=== PATIENT | male | born 1990 | race African-American/Black ===

== ENCOUNTER 2021-06-14 14:22 | Inpatient (IN) | payer MEDICAID ==
[~2021-06-14] VITALS: Ht 175.3 cm; Wt 85.3 kg
[2021-06-14 14:55] LABS: BASOPHILS % (AUTO) 1.7 % (0.0-2.0); EOSINOPHILS % (AUTO) 7.2 % (1.0-6.0); HEMATOCRIT 45.2 % (41-53); HEMOGLOBIN 14.4 g/dL (13.5-17.5); LYMPHOCYTES # (AUTO) 1.3 K/uL (1.0-4.8); LYMPHOCYTES % (AUTO) 30.3 % (22.0-44.0); MEAN CORPUSCULAR HEMOGLOBIN 25.1 pg (26.0-34.0); MEAN CORPUSCULAR VOLUME 79 fL (80-100); MONOCYTES # (AUTO) 0.3 K/uL (0.1-1.0); MONOCYTES % (AUTO) 6.4 % (2.0-9.0); NEUTROPHILS # (AUTO) 2.4 K/uL (1.8-7.7); NEUTROPHILS % (AUTO) 54.4 % (40.0-70.0); PLATELET COUNT (AUTO) 346 K/uL (150-450); RED BLOOD CELL COUNT(AUTO) 5.74 MIL/uL (4.50-5.90)
[2021-06-14 15:17] LABS: ANION GAP 8 mmol/L (8-16); CALCIUM, TOTAL 9.1 mg/dL (8.8-10.5); CARBON DIOXIDE 30 mmol/L (22-29); CHLORIDE 108 mmol/L (98-107); GLOMERULAR FILTR. RATE CALC > 60 mL/min (>60); GLUCOSE,RANDOM 105 mg/dL (70-110); POTASSIUM 3.9 mmol/L (3.5-5.1); SODIUM SERUM 146 mmol/L (136-145); UREA NITROGEN, BLOOD 13 mg/dL (7-18)
[2021-06-14 15:25] LABS: AMPHET/METH SCREEN,URINE POSITIVE (NEGATIVE); BARBITURATE SCREEN, URINE NEGATIVE (NEGATIVE); BENZODIAZEPINES SCREEN,URINE NEGATIVE (NEGATIVE); CANNABINOID SCREEN,URINE POSITIVE (NEGATIVE); COCAINE SCREEN,URINE NEGATIVE (NEGATIVE); METHADONE SCREEN, URINE NEGATIVE (NEGATIVE); OPIATE SCREEN,URINE NEGATIVE (NEGATIVE)
[2021-06-14 15:26] LABS: PHENCYCLIDINE SCREEN,URINE NEGATIVE (NEGATIVE)
[2021-06-14 15:27] LABS: ALANINE AMINOTRANSFERASE 28 U/L (12-78); ALBUMIN 4.2 g/dL (3.4-5.0); ALKALINE PHOSPHATASE 81 U/L (46-116); ASPARTATE AMINOTRANSFERASE 18 U/L (15-37); BILIRUBIN,TOTAL 1.1 mg/dL (0.1-1.0); TOTAL PROTEIN, SERUM 7.8 g/dL (6.4-8.2)
[2021-06-14 16:43] LABS: COVID AG,FIA SOURCE NASOPHARYNGEAL
[2021-06-14] MEDS ORDERED: ZOLPIDEM TARTRATE 10 MG TABLET PO PRN (21:00)
[2021-06-15 01:51] VITALS: BP 137/90
[2021-06-15] MEDS ORDERED: ACETAMINOPHEN 325 MG TABLET PO PRN (06:30)
[2021-06-15] MEDS ORDERED: MAG HYDROX/AL HYDROX/SIMETH ES 30 ML SUSPENSION UDCUP PO PRN (06:30)
[2021-06-15] MEDS ORDERED: DOCUSATE SODIUM 100 MG CAPSULE PO PRN (06:30)
[2021-06-15] MEDS ORDERED: ALBUTEROL SULFATE HFA 90 MCG/PUFF 8 GM INHALER IH PRN (06:30)
[2021-06-15] MEDS ORDERED: GuaiFENesin/D-METHORPHAN [SUGAR-FREE] 200-20MG/10 ML SYRUP UDCUP PO PRN (06:30)
[2021-06-15] MEDS ORDERED: NICOTINE 14 MG/24 HOUR PATCH TD PRN (06:30)
[2021-06-15] MEDS ORDERED: PETROLATUM,WHITE 28 GM JELLY TP PRN (06:30)
[2021-06-15] MEDS ORDERED: CloNIDine HCL 0.1 MG TABLET PO PRN (06:30)
[2021-06-15] MEDS ORDERED: ONDANSETRON HCL 4 MG TABLET PO PRN (06:30)
[2021-06-15] MEDS ORDERED: LOPERAMIDE HCL 2 MG CAPSULE PO PRN (06:30)
[2021-06-15] MEDS ORDERED: MAGNESIUM HYDROXIDE SUSPENSION 30 ML UDCUP PO PRN (06:30)
[2021-06-15] MEDS ORDERED: IBUPROFEN 400 MG TABLET PO PRN (06:30)
[2021-06-15 08:15] VITALS: BP 114/65
[2021-06-15] MEDS ORDERED: DiphenhydrAMINE HCL 50 MG/ML VIAL ONE (10:45)
[2021-06-15] MEDS ORDERED: LORazepam 2 MG/ML VIAL ONE (10:45)
[2021-06-15] MEDS ORDERED: HALOPERIDOL LACTATE 5 MG/ML VIAL ONE (10:45)
[2021-06-15] MEDS ORDERED: HALOPERIDOL LACTATE 5 MG/ML VIAL IM ONE (11:30)
[2021-06-15] MEDS ORDERED: LORazepam 2 MG/ML VIAL IM ONE (11:30)
[2021-06-15] MEDS ORDERED: DiphenhydrAMINE HCL 50 MG/ML VIAL IM ONE (11:30)
[2021-06-15 16:12] VITALS: BP 106/62
[2021-06-15] MEDS: LORazepam 2 MG TABLET PO PRN (17:07)
[2021-06-15] MEDS: HALOPERIDOL 5 MG TABLET PO PRN (17:07)
[2021-06-15] MEDS: OLANZapine 5 MG RAPDIS TABLET PO SCH (20:33)
[2021-06-16] MEDS: OLANZapine 5 MG RAPDIS TABLET PO SCH ×2 (09:00→20:51)
[2021-06-16] MEDS: LORazepam 2 MG TABLET PO PRN (22:21)
[2021-06-17 07:34] LABS: CHOL/HDL RATIO 3.4 (4.2-7.3); FREE T4 (FREE THYROXINE) 0.92 ng/dL (0.76-1.46); THYROID STIMULATING HORMONE 0.87 uIU/mL (0.36-3.74)
[2021-06-17] MEDS: OLANZapine 5 MG RAPDIS TABLET PO SCH ×2 (09:00→21:00)
[2021-06-17] MEDS: HALOPERIDOL 5 MG TABLET PO PRN (16:07)
[2021-06-17] MEDS: LORazepam 2 MG TABLET PO PRN (16:07)
[2021-06-17 16:24] VITALS: BP 130/67
[2021-06-18 06:37] VITALS: BP 108/64
[2021-06-18 08:08] VITALS: BP 108/67
[2021-06-18] MEDS: OLANZapine 5 MG RAPDIS TABLET PO SCH (08:45)
[2021-06-18] MEDS ORDERED: OLAN5TAB94 PO (09:51)
== END 2021-06-18 15:03 | disposition home or self-care (01) | DRG 750 ==
LOC: EMS 14:26 → EDBD 14:26 → B2S 21:09 → B3A 06-15 11:48
DX: F25.0 Schizoaffective disorder, bipolar type (principal); E87.0 Hyperosmolality and hypernatremia; R45.851 Suicidal ideations; D72.819 Decreased white blood cell count, unspecified; F15.10 Other stimulant abuse, uncomplicated; Z20.822 Contact with and (suspected) exposure to COVID-19; Z79.899 Other long term (current) drug therapy
CPT/HCPCS: 80053; 80061; 84439; 84443; 85025; 99285; G0480; J1200; J1630; J2060

== ENCOUNTER 2021-07-20 13:30 | Inpatient (IN) | payer MEDICAID ==
[~2021-07-20] VITALS: Ht 177.8 cm; Wt 80.1 kg
[~2021-07-20 13:30] MED LIST: OLAN5TAB94 PO
[2021-07-20] MEDS ORDERED: ARIP400S3 IM (14:21)
[2021-07-20] MEDS ORDERED: DiphenhydrAMINE HCL 50 MG/ML VIAL IM ONE ×2 (14:45→17:45)
[2021-07-20] MEDS ORDERED: HALOPERIDOL LACTATE 5 MG/ML VIAL IM ONE ×2 (14:45→17:45)
[2021-07-20] MEDS ORDERED: LORazepam 2 MG/ML VIAL IM ONE ×2 (14:45→17:45)
[2021-07-20] MEDS ORDERED: LORazepam 2 MG TABLET PO PRN (15:45)
[2021-07-20] MEDS ORDERED: HALOPERIDOL 5 MG TABLET PO PRN (15:45)
[2021-07-20] MEDS ORDERED: ZOLPIDEM TARTRATE 10 MG TABLET PO PRN (15:45)
[2021-07-20 16:35] LABS: COVID AG,FIA SOURCE NASOPHARYNGEAL
[2021-07-20 17:28] LABS: AMPHET/METH SCREEN,URINE POSITIVE (NEGATIVE); BARBITURATE SCREEN, URINE NEGATIVE (NEGATIVE); BENZODIAZEPINES SCREEN,URINE NEGATIVE (NEGATIVE); CANNABINOID SCREEN,URINE POSITIVE (NEGATIVE); COCAINE SCREEN,URINE NEGATIVE (NEGATIVE); METHADONE SCREEN, URINE NEGATIVE (NEGATIVE); OPIATE SCREEN,URINE NEGATIVE (NEGATIVE)
[2021-07-20 17:36] LABS: PHENCYCLIDINE SCREEN,URINE NEGATIVE (NEGATIVE)
[2021-07-20] MEDS ORDERED: MAG HYDROX/AL HYDROX/SIMETH ES 30 ML SUSPENSION UDCUP PO PRN (23:00)
[2021-07-20] MEDS ORDERED: ONDANSETRON HCL 4 MG TABLET PO PRN (23:00)
[2021-07-20] MEDS ORDERED: BENZOCAINE/MENTHOL LOZENGE PO PRN (23:00)
[2021-07-20] MEDS ORDERED: MAGNESIUM HYDROXIDE SUSPENSION 30 ML UDCUP PO PRN (23:00)
[2021-07-20] MEDS ORDERED: DOCUSATE SODIUM 100 MG CAPSULE PO PRN (23:00)
[2021-07-20] MEDS ORDERED: CloNIDine HCL 0.1 MG TABLET PO PRN (23:00)
[2021-07-20] MEDS ORDERED: ALBUTEROL SULFATE HFA 90 MCG/PUFF 8 GM INHALER IH PRN (23:00)
[2021-07-20] MEDS ORDERED: ACETAMINOPHEN 325 MG TABLET PO PRN (23:00)
[2021-07-20] MEDS ORDERED: OMEPRAZOLE 20 MG CAPSULE PO PRN (23:00)
[2021-07-20] MEDS ORDERED: IBUPROFEN 600 MG TABLET PO PRN (23:00)
[2021-07-20] MEDS ORDERED: LOPERAMIDE HCL 2 MG CAPSULE PO PRN (23:00)
[2021-07-20] MEDS ORDERED: PETROLATUM,WHITE 28 GM JELLY TP PRN (23:00)
[2021-07-20] MEDS ORDERED: BACITRACIN 28 GM OINTMENT TP PRN (23:00)
[2021-07-21 09:43] VITALS: BP 107/63
[2021-07-21 16:14] VITALS: BP 114/77
[2021-07-21] MEDS ORDERED: LORazepam 2 MG/ML VIAL IM ONE (18:45)
[2021-07-21] MEDS ORDERED: HALOPERIDOL LACTATE 5 MG/ML VIAL IM ONE (18:45)
[2021-07-21] MEDS ORDERED: DiphenhydrAMINE HCL 50 MG/ML VIAL IM ONE (18:45)
[2021-07-21 20:04] VITALS: BP 151/82
[2021-07-21] MEDS: OLANZapine 7.5 MG TABLET PO SCH (21:00)
[2021-07-22 16:12] VITALS: BP 139/72
[2021-07-22] MEDS: OLANZapine 7.5 MG TABLET PO SCH (21:00)
[2021-07-23 08:00] VITALS: BP 105/56
[2021-07-23] MEDS: OLANZapine 7.5 MG TABLET PO SCH (20:20)
[2021-07-24 08:07] VITALS: BP 116/86
[2021-07-24] MEDS ORDERED: HALOPERIDOL 5 MG TABLET PO PRN (10:45)
[2021-07-24 16:17] VITALS: BP 122/70
[2021-07-24] MEDS: OLANZapine 7.5 MG TABLET PO SCH (20:39)
[2021-07-25 08:01] VITALS: BP_SYST 97
[2021-07-25] MEDS ORDERED: OLAN7.5T22 PO (10:46)
== END 2021-07-25 12:18 | disposition home or self-care (01) | DRG 750 ==
LOC: EMS 13:34 → 3EC 15:33
PROVIDERS: ADMIT Psychiatry & Neurology Psychiatry; ATTEND Psychiatry & Neurology Psychiatry
DX: F25.9 Schizoaffective disorder, unspecified (principal); F15.10 Other stimulant abuse, uncomplicated; F31.9 Bipolar disorder, unspecified; Z20.822 Contact with and (suspected) exposure to COVID-19; G47.00 Insomnia, unspecified; K59.00 Constipation, unspecified; F41.9 Anxiety disorder, unspecified; Z72.0 Tobacco use; Z71.6 Tobacco abuse counseling
CPT/HCPCS: 99285; J1200; J1630; J2060